=== PATIENT | male | born 1935 | race Caucasian/White ===

== ENCOUNTER 2018-01-02 12:28 | Emergency (ER) | payer OTHER ==
[2018-01-02 13:04] LABS: ADD MAN DIFF? NO
[2018-01-02 13:06] LABS: WHITE BLOOD COUNT 8.4 10^3/ul (4.8-10.8)
[2018-01-02 13:06] LABS: BASOPHILS % 0.4 % (0.0-2.0); EOSINOPHILS # 0.2 10^3/ul (0.0-0.5); EOSINOPHILS % 2.9 % (0.0-7.0); HEMATOCRIT 41.4 % (42.0-52.0); HEMOGLOBIN 13.5 g/dl (14.0-18.0); LYMPHOCYTES # 1.8 10^3/ul (0.8-2.9); LYMPHOCYTES % 21.9 % (15.0-51.0); MEAN CORPUSCULAR HEMOGLOBIN 28.7 pg (29.0-33.0); MEAN CORPUSCULAR HGB CONC 32.6 g/dl (32.0-37.0); MEAN CORPUSCULAR VOLUME 88.1 fl (82.0-101.0); MEAN PLATELET VOLUME 11.3 fl (7.4-10.4); MONOCYTE # 0.7 10^3/ul (0.3-0.9); MONOCYTES % 8.7 % (0.0-11.0); NEUTROPHIL # 5.5 10^3/ul (1.6-7.5); NEUTROPHILS % 65.7 % (39.0-77.0); PLATELET COUNT 259 10^3/UL (140-415); RED CELL DISTRIBUTION WIDTH 14.6 % (11.5-14.5)
[2018-01-02 13:24] LABS: ALANINE AMINOTRANSFERASE 63 IU/L (13-69); ALBUMIN 3.3 g/dl (3.3-4.9); ALBUMIN/GLOBULIN RATIO 0.89; ALKALINE PHOSPHATASE 298 IU/L (42-121); ANION GAP 12 (8-16); ASPARTATE AMINO TRANSFERASE 83 IU/L (15-46); BILIRUBIN,INDIRECT 0.8 mg/dl (0-1.1); BILIRUBIN,TOTAL 0.8 mg/dl (0.2-1.3); BLOOD UREA NITROGEN 26 mg/dl (7-20); CALCIUM 9.2 mg/dl (8.4-10.2); CARBON DIOXIDE 25 mmol/L (21-31); CHLORIDE 101 mmol/L (97-110); CREATINE KINASE 25 IU/L (23-200); CREATININE 1.16 mg/dl (0.61-1.24); POTASSIUM 4.9 mmol/L (3.5-5.1); SODIUM 133 mmol/L (135-144)
[2018-01-02 13:28] LABS: INR 1.01; PARTIAL THROMBOPLASTIN TIME 28.1 Sec (25.0-35.0); PROTIME 13.4 Sec (11.9-14.9)
[2018-01-02 13:29] LABS: GLUCOSE 419 mg/dl (70-220)
[2018-01-02 13:36] LABS: B-TYPE NATRIURETIC PEPTIDE 298 PG/ML (0-450); CK INDEX 1.5
[2018-01-02 13:39] LABS: CK-MB 0.37 ng/ml (0.0-2.4); TROPONIN-I < 0.012 ng/ml (0.000-0.120)
[2018-01-02] MEDS: ASPIRIN 325 MG TAB PO (13:47)
[2018-01-02] MEDS: INSULIN LISPRO 100 UNIT/ML VIAL SC (13:54)
[2018-01-02] MEDS: IOHEXOL 350MG/ML 50 ML BTL (14:01)
[2018-01-02] MEDS: SOD CHLORIDE 0.9% 1,000 ML IV (14:25)
[2018-01-02] MEDS: SOD CHLORIDE 0.9% 100 ML (15:15)
[2018-01-02] MEDS: IOHEXOL 100 ML (15:15)
[2018-01-02] MEDS: ENOXAPARIN 80 MG/0.8 ML SYG SC (16:31)
== END 2018-01-02 17:34 | disposition short-term general hospital (02) ==
LOC: E/R 12:28
DX: R07.9 Chest pain, unspecified (principal); E11.65 Type 2 diabetes mellitus with hyperglycemia; I10 Essential (primary) hypertension; Z79.01 Long term (current) use of anticoagulants; Z79.82 Long term (current) use of aspirin; Z95.1 Presence of aortocoronary bypass graft
CPT/HCPCS: 71045; 71275; 73590; 80053; 82550; 82553; 82962; 83880; 84484; 85025; 85610; 85730; 93005; 96372; 99285-25